=== PATIENT | female | born 1965 | race Caucasian/White ===

== ENCOUNTER 2023-08-26 10:46 | Emergency (ER) | payer OTHER, SELFPAY ==
[2023-08-26] VITALS (7 sets, daily range): BP systolic 139–190; BP diastolic 80–102; PULSE 66–88; RESP 16–18; TEMP 36.4–36.8; O2SAT 97–98; BMI 30.5
--- NOTE | ~2023-08-26 | CT_ITS ---
EXAMINATION: CT SOFT TISSUE NECK WITH CONTRAST CLINICAL INFORMATION: Swelling lower right jaw. COMPARISON: None available. TECHNIQUE: Following the intravenous administration of 60 mL of Omnipaque 350 intravenous contrast, helical imaging was performed in the axial plane with generation of coronal and sagittal reformatted images. This CT examination was performed using dose optimization techniques as appropriate, variously including the following: *Automated exposure control *Adjustment of mA and/or kV according to patient size (this includes techniques or standardized protocols for targeted exams where dose is matched to indication/reason for exam; i.e. extremities or head) *Use of iterative reconstruction technique DLP: 509 mGy-cm FINDINGS: Periapical lucency is identified with the right first mandibular molar with focal dehiscence of the buccal margin of the adjacent mandibular cortex asymmetric soft tissue density is noted along the adjacent buccal margin of the mandible. A single 1 mm punctate focus of soft tissue emphysema is visualized in this region. Mild asymmetric thickening of the adjacent superficial layer of the deep cervical fascia is identified. No inflammatory changes or abnormal fluid collections are identified within the floor the mouth. The parotid, submandibular and visualized sublingual glands are normal in appearance. Periapical lucencies associated with the right first maxillary molar with dehiscence of the adjacent lingual cortex of the maxilla no shilpi dehiscence of the adjacent maxillary sinus inferior wall. 1 mm mucosal thickening is noted within the alveolar recess of the right maxillary sinus, within expected physiologic limits of normal thickening. Within the incidentally visualized intracranial structures, no tumors, hemorrhage or acute infarcts identified. The visualized ventricles and sulci are normal in configuration. The orbits and globes are normal in appearance. No significant opacification of the visualized paranasal sinuses, mastoid air cells and middle ear cavities. The larynx and pharynx are normal in appearance. A 7 mm rounded low-density focus is present in the right lobe of the thyroid which statistically is overwhelmingly likely to represent a benign entity and on the basis of this exam requires no additional imaging follow-up. Visualized lung apices demonstrate no focal pulmonary consolidation. Visualization is made of minimal is aortic attenuation which is of uncertain clinical significance. Normal calcific plaque is noted in the visualized transverse aorta. The carotid bulbs are grossly normal in appearance. Moderate posterior broad-based disc-osteophyte complexes are present at C4-C5 and C5-C6 and a moderate-marked posterior broad-based disc-osteophyte complex is noted at C6-C7. Mild 7 moderate multilevel facet hypertrophic changes are visualized. No prevertebral fluid collections or soft tissue inflammatory changes identified. CT/CT soft tissue neck w IV con IMPRESSION: 1. Periapical lucency associated with the right first mandibular molar with focal dehiscence of the buccal margin of the adjacent mandibular cortex and asymmetric soft tissue density along the buccal margin of the mandible suspicious for odontogenic cellulitis. A single 1 mm punctate focus of soft tissue emphysema is visualized in this region. 2. Periapical lucencies associated with the right first maxillary molar with dehiscence of the adjacent lingual cortex of the maxilla. No shilpi dehiscence of the adjacent maxillary sinus inferior wall. 3. Multilevel chronic spondylosis of the cervical spine.
--- NOTE | 2023-08-26 10:53 | ED_ITS ---
HPI - General Adult General Chief complaint: Dental/Oral Stated complaint: HEADACHE,?INFECTED TOOTH, FACE SWELLING NEAR MOUTH Time Seen by Provider: 08/26/23 10:47 Source: patient Mode of arrival: ambulatory Limitations: no limitations History of Present Illness HPI narrative: Patient is a 58-year-old female presenting to the emergency department with swelling to right lower jaw x 4 days. States she had a root canal 5 years ago with a crown, crown has since fallen off. States her dentist told her that based on x-rays, he feels this tooth is at risk for infection/abscess. She has dental appointment in September for extraction. Reports headaches associated with jaw pain, rates at 6/10. Using Tylenol and Anbesol. Today had two episodes of dizziness at home so she called out of work. Tried to schedule a telehealth appoinment with PCP but was referred to the ED. MD complaint: jaw pain, dizziness Onset (ago): day(s) Location: head and mouth Severity: moderate Severity scale (1-10): 6 Quality: aching Pain Consistency: intermittent Relieving factors: medication Associated symptoms: other Treatments prior to arrival: other Related Data Allergies Allergy/AdvReac Type Severity Reaction Status Date / Time latex Allergy Unknown Verified 08/26/23 11:20 lisinopril Allergy Facial Verified 08/26/23 11:20 Swelling Review of Systems 2 Review of Systems: As per HPI. Yes all other systems are reviewed and are negative Constitutional: Constitutional: Reports as per HPI [facility] Social History Social History Smoked in Last 30 Days: Yes Use of substances other than those prescribed or required for medical reasons: Yes Substance Use Type: Marijuana Substance Use Frequency: Occasionally Advance Directives: No Advance Directives Information Provided: Yes Physical Exam ED Vital Signs: Vital Signs - 24 hr 08/26/23 11:11 08/26/23 12:55 08/26/23 13:05 Temperature 97.8 F Pulse Rate 78 67 Respiratory Rate 16 16 Blood Pressure 187/102 H 169/95 H 169/95 H Pulse Oximetry 98 Oxygen Delivery Method Room Air 08/26/23 15:55 08/26/23 17:16 Temperature 97.6 F Pulse Rate 69 66 Respiratory Rate 16 16 Blood Pressure 164/90 H 139/80 Pulse Oximetry 98 97 Oxygen Delivery Method Room Air Room Air BMI result Body Mass Index 30.5 Const General: cooperative, healthy appearing and no acute distress Orientation/consciousness: oriented to person, oriented to place, oriented to time and patient oriented x3 Limitations: no limitations HENMT Head: Yes normocephalic and Yes atraumatic Ears: external ears normal General nose exam: Normal external nose present Face and sinus: Yes face symmetric Mouth: oropharynx normal and moist mucous membranes Teeth and gingiva: other (palpable swelling to right lower jaw) Teeth image: 2 1. tenderness Throat: Yes uvula midline Eyes Pupils: Equal, round and reactive pupils present Neck Neck: Yes normal visual inspection, Yes no lymphadenopathy and Yes supple Resp Effort & Inspection: normal respiratory effort and able to speak in complete sentences Auscultation: clear to auscultation bilaterally Cardio Rate: regular rate Rhythm: regular rhythm Heart sounds: S1 normal heart sound present and S2 normal heart sound present GI Palpation (GI): Soft to palpation and nontender Auscultation: normoactive bowel sounds General: Yes no CVA tenderness Back/Spine/Pelvis Back: no CVA tenderness Skin General skin exam: elasticity normal and turgor normal Neuro General: oriented to person, oriented to place, oriented to time, patient oriented x3, moves all extremities, no focal motor deficits and CN's II-XI intact bilaterally Cranial nerves: Yes Equal, round and reactive pupils present Cognition (Neuro): normal cognition Extrem General: Yes full ROM, Yes no pedal edema and Yes no calf tenderness Psych Mental Status: mental status grossly normal Affect: normal affect Thought process: Normal thought process present Course Reevaluation(s) Reevaluation #1: Received in sign-out at change of shift pending disposition. I discussed with Dr. Scott davis, ENT at [facility] who does not deal with dental infections. I discussed with Dr. Alfaro reports that he does not have an admitting service at [facility] and the patient would not require OR intervention tonight so he declines transfer based on space. At this point we will transfer the patient to [place]. This was discussed with the patient and she is comfortable with the plan. I did discuss with [facility] to attempt to upload the images to both [facility] and [place] ED. A disc will be provided for the patient's transfer Time: 17:48 Medications Administered Discontinued Medications Generic Name Dose Route Start Last Admin Trade Name Freq PRN Reason Stop Dose Admin Piperacillin Sod/Tazobactam 50 mls @ 100 mls/hr 08/26/23 15:13 08/26/23 16:28 Sod 3.375 gm/ Sodium Chloride IV 08/26/23 15:42 Infused ONCE ONE Infusion Vancomycin HCl 2,000 mg in 500 mls @ 250 mls/hr 08/26/23 15:18 08/26/23 16:37 Vancomycin/Ns IV 08/26/23 17:17 250 mls/hr ONCE ONE Administration Iohexol 60 ml 08/26/23 12:39 08/26/23 12:39 Iohexol 350 Mg/Ml 100 Ml Infus..Btl IV 08/26/23 12:40 60 ml ONCE ONE Administration Ketorolac Tromethamine 15 mg 08/26/23 15:40 08/26/23 15:48 Ketorolac Tromethamine 15 Mg/Ml Vial IVPUSH 08/26/23 15:41 15 mg ONCE ONE Administration Medical Decision Making Medical Decision Making [facility] Narrative: Patient is a 58-year-old female presenting to the emergency department with swelling to right lower jaw x 4 days. On exam patient is awake, A+Ox3, BP elevated, VS otherwise WNL, afebrile, normal neurological exam without focal deficits, physical exam findings as above. Given reported symptoms and physical exam findings, initial differential includes dental infection, dental abscess, mandibular infection. Labs notable for no leukocytosis, negative troponin, mildly elevated LFTs. CT concerning for odontogenic cellulitis, 1mm focus of soft tissue emphysema visualized. My interpretation is in agreement with the radiologist's interpretation. Case discussed with Dr. Diaz who recommends transfer. IV Zosyn and Vanco ordered. 15:50 [facility] declining transfer at this time. 16:19 Patient accepted as ED to ED transfer at [facility] by Dr. Rueda. 16:25 Patient's family member, Dr. Lincoln, who is a neurologist at [facility] called concerned as to why patient is being transferred to and not [facility]. Discussed that [facility] declined citing no beds available, he states he will be able to facilitate transfer. Patient signed out to [facility] pending determination of transfer location. Differential Diagnosis Differential Diagnoses: The differential diagnosis associated with the presentation includes As per [facility] Admission/Observation Consideration of admission/observation: Escalation of care including admission/observation considered Lab Data [facility] Lab Attestation statement: I reviewed the patient's lab results. As per MDM. 08/26/23 11:46 08/26/23 11:46 Labs: Lab Results 08/26/23 08/26/23 Range/Units 11:46 13:27 WBC 8.1 (4.8-10.8) X10*3/uL RBC 4.58 (4.20-5.50) X10*6/uL Hgb 13.9 (12.0-16.0) g/dl Hct 39.0 (37.0-47.0) % MCV 85.2 (80.0-98.0) fL MCH 30.3 (27.0-33.0) pg MCHC 35.6 H (31.0-35.0) g/dl RDW 12.8 (11.0-16.0) % Plt Count 275 (160-400) X10*3/uL MPV 9.2 L (9.4-12.3) fL Immature Gran % (Auto) 0.2 (0.0-0.4) % Neut % (Auto) 55.5 (45-73) % Lymph % (Auto) 33.9 (20-40) % Burnett % (Auto) 7.2 (2-11) % Eos % (Auto) 2.3 (0-4) % Baso % (Auto) 0.9 (0-2) % Lymph # (Auto) 2.8 (1.2-4.9) X10*3/uL Burnett # (Auto) 0.6 (0.1-1.2) X10*3/uL Eos # (Auto) 0.2 (0.0-0.4) X10*3/uL Baso # (Auto) 0.1 (0.0-0.2) X10*3/uL Abs Immat Gran (auto) 0.02 (0.00-0.03) X10*3/uL Absolute Neuts (auto) 4.5 (2.0-8.3) x10*3/uL Absolute Nucleated RBC 0.000 (0.0-0.012) X10*3/uL Nucleated RBC % (auto) 0.0 (0.0-0.2) /100WBC Sodium 139 (135-145) mmol/L Potassium 3.9 (3.3-5.1) mmol/L Chloride 111 H (96-108) mmol/L Carbon Dioxide 23 (22-29) mmol/L Anion Gap 9 L (12-20) BUN 16 (9-16) mg/dL Creatinine 0.78 (0.5-1.4) mg/dL Estim Creat Clear Calc 79.7 Estimated GFR > 60 Random Glucose 223 H (60-115) mg/dL Calcium 9.3 (8.4-10.2) mg/dL Total Bilirubin 0.2 (0.0-1.0) mg/dL AST 36 H (5-31) U/L ALT 55 H (0-31) U/L Alkaline Phosphatase 161 H (39-117) U/L Troponin I High Sens < 2.7 (<3.5-17.0) ng/L Total Protein 6.8 (6.5-8.0) g/dL Albumin 3.8 (3.5-5.0) g/dL Independent Interpretation I performed an independent interpretation of an: CT Scan Interpretation: CT concerning for odontogenic cellulitis, 1mm focus of soft tissue emphysema visualized Radiology Impression Discussion of test interpretation with radiology: I have reviewed the radiologist's reading. Radiologist Impression: CT/CT soft tissue neck w IV con IMPRESSION: 1. Periapical lucency associated with the right first mandibular molar with focal dehiscence of the buccal margin of the adjacent mandibular cortex and asymmetric soft tissue density along the buccal margin of the mandible suspicious for odontogenic cellulitis. A single 1 mm punctate focus of soft tissue emphysema is visualized in this region. 2. Periapical lucencies associated with the right first maxillary molar with dehiscence of the adjacent lingual cortex of the maxilla. No shilpi dehiscence of the adjacent maxillary sinus inferior wall. 3. Multilevel chronic spondylosis of the cervical spine. External Record Review External record reviewed: Inpatient record, Office record and Outpatient record Prescription Management I considered prescription management with: Antibiotic Discharge Plan Discharge Clinical Impression: Infection of mandible Patient Disposition: Xfer Other Transfer Details: [facility] Print Language: Irish
--- NOTE | 2023-08-26 11:27 | ECG_ITS ---
Test Reason : DIZZINESS Blood Pressure : / mmHG Vent. Rate : 070 BPM Atrial Rate : 070 BPM P-R Int : 186 ms QRS Dur : 076 ms QT Int : 406 ms P-R-T Axes : 025 028 045 degrees QTc Int : 438 ms Normal sinus rhythm Septal infarct , age undetermined Abnormal ECG No previous ECGs available Referred By: Juliann Chapa Electronically Signed By:PAIGE ASTUDILLO MD
[2023-08-26 11:51] LABS: Basophils Absolute Auto 0.1 X10*3/uL (0.0-0.2); Basophils Percent Auto 0.9 % (0-2); Eosinophils Absolute Auto 0.2 X10*3/uL (0.0-0.4); Eosinophils Percent Auto 2.3 % (0-4); Hemoglobin 13.9 g/dl (12.0-16.0); Imm Gran Abs Auto 0.02 X10*3/uL (0.00-0.03); Imm Gran Pct Auto 0.2 % (0.0-0.4); Lymphocytes Absolute Auto 2.8 X10*3/uL (1.2-4.9); Lymphocytes Percent Auto 33.9 % (20-40); MANUAL DIFF FLAG NO; Mean Corpuscular HGB Conc 35.6 g/dl (31.0-35.0); Mean Corpuscular Hemoglobin 30.3 pg (27.0-33.0); Mean Corpuscular Volume 85.2 fL (80.0-98.0); Mean Platelet Volume 9.2 fL (9.4-12.3); Monocytes Absolute Auto 0.6 X10*3/uL (0.1-1.2); Monocytes Percent Auto 7.2 % (2-11); Neutrophils Absolute Auto 4.5 x10*3/uL (2.0-8.3); Neutrophils Percent Auto 55.5 % (45-73); Platelet Count 275 X10*3/uL (160-400); Red Blood Count 4.58 X10*6/uL (4.20-5.50); Red Cell Distribution Width 12.8 % (11.0-16.0); White Blood Count 8.1 X10*3/uL (4.8-10.8)
[2023-08-26 12:06] LABS: Alanine Aminotransferase 55 U/L (0-31); Albumin Level 3.8 g/dL (3.5-5.0); Alkaline Phosphatase 161 U/L (39-117); Anion Gap 9 (12-20); Aspartate Amino Transferase 36 U/L (5-31); Bilirubin Total 0.2 mg/dL (0.0-1.0); Blood Urea Nitrogen 16 mg/dL (9-16); Calcium 9.3 mg/dL (8.4-10.2); Carbon Dioxide 23 mmol/L (22-29); Chloride 111 mmol/L (96-108); Creatinine Clr Calc Pharmacy 79.7; Estimated Glomerular Filt Rate > 60; Glucose Random 223 mg/dL (60-115); Potassium 3.9 mmol/L (3.3-5.1); Sodium 139 mmol/L (135-145); Total Protein 6.8 g/dL (6.5-8.0)
[2023-08-26] MEDS: iohexoL 350 MG/ML 100 ML INFUS..BTL 60 ML IV (12:39)
[2023-08-26 13:53] LABS: Troponin-I High Sensitivity < 2.7 ng/L (<3.5-17.0)
[2023-08-26] MEDS: Piperacillin Sodium/Tazobactam 3.375 GM in 0.9 % Sodium Chloride 50 ML IV (15:34)
[2023-08-26] MEDS: Ketorolac Tromethamine 15 MG/ML VIAL IVPUSH (15:48)
[2023-08-26] MEDS: vancomycin/NS 2,000 MG/500 ML PLAST..BAG 250 MG IV (16:37)
--- NOTE | 2023-08-26 19:05 | PC.NURSE ---
late entry: pt a&o x4, pleasant, calm, and cooperative. ambulatory to bathroom independently. 20G IV placed to RAC by special procedures technologist. pt medicated per jul. rating 3/10 pain, much more tolerable after pain med administration. pt to be transferred to [facility]. snack given per TIM Gould. pt resting quietly on stretcher in no apparent distress. rr even/unlabored. call rich within reach. plan of care ongoing.
--- NOTE | 2023-08-26 19:54 | PC.NURSE ---
Assumed care of pt. EMS transport arrived to transfer pt to [facility]. No acute distress, VSS.
== END 2023-08-26 20:03 | disposition other institution (70) ==
PROVIDERS: Registered Nurse Emergency; Emergency Provider Student in an Organized Health Care Education/Training Program; PCP Family Medicine
DX: R51.9 Headache, unspecified (principal); M27.2 Inflammatory conditions of jaws; R42 Dizziness and giddiness; R94.31 Abnormal electrocardiogram [ECG] [EKG]; M54.2 Cervicalgia; Z79.899 Other long term (current) drug therapy
CPT/HCPCS: 36415; 70491; 80053; 84484; 85025; 93005; 96365; 96366; 96367; 96375; 99284; 99285; J1885; J2543; J3370; Q9967

== ENCOUNTER → 2023-08-26 11:27 | Outpatient (BNV) | payer OTHER, SELFPAY | PROVIDERS: Emergency Provider Student in an Organized Health Care Education/Training Program; PCP Family Medicine; Visit Provider Internal Medicine Cardiovascular Disease | DX: R42 Dizziness and giddiness (principal) | CPT/HCPCS: 93010 ==